=== PATIENT | female | born 1985 | race Caucasian/White ===

== ENCOUNTER 2021-06-21 07:19 | Emergency (ER) | payer OTHER, SELFPAY ==
[2021-06-21] VITALS (18 sets, daily range): BP systolic 100–120; BP diastolic 68–78; PULSE 48–65; RESP 16–18; TEMP 36.9; O2SAT 95–100; BMI 21.9
--- NOTE | 2021-06-21 07:29 | DI.RAD.S_ITS ---
PROCEDURE: XR ACUTE ABDOMEN SERIES INDICATIONS: Abdominal pain TECHNIQUE: One view chest and two views of the abdomen were acquired. COMPARISON: None. FINDINGS: Surgical changes and devices: None. Chest: Lungs are clear. Heart size is normal. No pleural effusions. No pneumoperitoneum. Abdomen: Bowel gas pattern is normal. No suspicious calcifications. Visualized solid organ contours appear normal. Bones: No suspicious bony lesions. IMPRESSION: A nonobstructive bowel gas pattern is seen. If clinically appropriate, please consider a repeat plain film study or a dedicated CT of the abdomen and pelvis, if the patient's symptoms persist or worsen. Dictated by: Didier Castillo M.D. on 06/21/2021 at 7:38 Approved by: Didier Castillo M.D. on 06/21/2021 at 7:38
[2021-06-21 07:50] LABS: Add Manual Diff / Slide Review NO; Basophils Absolute Auto 0 /uL (0-100); Basophils Percent Auto 0.4 % (0-2); Eosinophils Absolute Auto 0 /uL (0-450); Eosinophils Percent Auto 0.6 % (2-4); Hematocrit 37.9 % (36-46); Hemoglobin 12.6 g/dL (12.0-16.0); Lymphocytes Absolute Auto 600 /uL (1100-4500); Lymphocytes Percent Auto 12.2 % (25-40); Mean Corpuscular HGB Conc 33.3 % (30-36); Mean Corpuscular Hemoglobin 28.9 PG (26-34); Mean Corpuscular Volume 86.8 fL (80-100); Monocytes Absolute Auto 400 /uL (0-900); Neutrophils Absolute Auto 4100 /uL (1500-7000); Neutrophils Percent Auto 78.8 % (50-75); Platelet Count 165 X10^3/uL (150-400); Red Blood Cell Count 4.36 X10^6/uL (4.0-5.2); Red Cell Distribution Width 17.8 % (11.6-14.8); White Blood Cell Count 5.2 X10^3/uL (4.5-11.0)
[2021-06-21 08:01] LABS: Alanine Aminotransferase 15 IU/L (<35); Albumin 4.5 g/dL (3.5-5.0); Albumin Globulin Ratio 1.6 (1.0-2.8); Alkaline Phosphatase 39 U/L (38-126); Aspartate Aminotransferase 24 IU/L (14-36); BUN Creatinine Ratio 23.2 (6-22); Bilirubin Total 0.2 mg/dL (0.2-1.3); Blood Urea Nitrogen 16 mg/dL (7-17); Calcium 9.3 mg/dL (8.4-10.2); Carbon Dioxide 29 mmol/L (22-32); Chloride 103 mmol/L (98-107); Estimated Glomerular Filt Rate > 60.0 mL/min (>60); Globulin 2.8 g/dL (1.7-4.1); Glucose 96 mg/dL (70-100); HEMOLYSIS < 15 (0-50); Potassium 4.3 mmol/L (3.4-5.1); Sodium 140 mmol/L (137-145); Total Protein 7.3 g/dL (6.3-8.2)
[2021-06-21] MEDS: PANTOPRAZOLE 40 MG VIAL IV (08:06)
[2021-06-21] MEDS: SODIUM CHLORIDE 0.9% 1,000 ML 1000 ML IV (08:06)
--- NOTE | 2021-06-21 08:56 | ED.ABDPAIN ---
HPI - Abdominal Pain General Chief Complaint: Abdominal Pain Stated Complaint: abdomen pain x1 day Time Seen by Provider: 06/21/21 07:25 Source: patient and family Mode of arrival: Family Vehicle Limitations: no limitations History of Present Illness HPI narrative: 35-year-old female nonsmoker without a significant medical history presents with her in the chief complaint of severe epigastric pain over the past 24 hours or so. She states that in that time frame she has had tight, gripping pain in her upper abdomen that seems to be made worse depending on her position, was particularly bad last night when she was trying to lay on her abdomen. She denies any obvious relationship to eating or drinking. She has had nausea but no vomiting. She has been having episodes of loose stools over the past few days. She had an episode or 2 of dark stool after taking Pepto-Bismol. She has been on 2 courses of Augmentin for an infection in her finger and has 2 pills left with her last prescription. She has regained essentially full range of motion and has no redness, pain or swelling on her finger where she was bit by dog about 1 month ago. She has an upcoming MRI for evaluation of her injury. Additionally she did a 3 day fast of nothing but water and coffee and and did this on Wednesday. She states the next day she started feeling sick and just has not been right since then. Related Data Previous Rx's Medication Instructions Recorded hyoscyamine sulfate 0.125 mg tablet 0.125 mg PO BID-QID PRN #20 tab 06/21/21 ondansetron 4 mg disintegrating 4 mg PO TID-QID PRN #10 tab 06/21/21 tablet vancomycin 125 mg capsule 125 mg PO QID 10 Days #40 cap 06/21/21 Allergies Allergy/AdvReac Type Severity Reaction Status Date / Time Opioids - Morphine Analogues AdvReac Vomiting Verified 06/21/21 07:51 Review of Systems Review of Systems Narrative: GENERAL: Denies chills, fatigue, malaise, fever, sweats. HEENT: Denies sinus pain, ear pain, sore throat, difficulty swallowing, dizziness. RESPIRATORY: Denies dyspnea, cough, wheezing, hemoptysis, sputum. CARDIOVASCULAR: Denies chest pain, palpitations, orthopnea, edema, GASTROINTESTINAL: See HPI : Denies dysuria, frequency, incontinence, hematuria, urinary retention. MUSCULOSKELETAL: denies weakness, joint pain, or bony pain SKIN: Denies rash, skin lesions, or other NEUROLOGIC: Denies weakness, headache, numbness, change in speech, confusion, seizures, incoordination. PSYCHIATRIC: No concerning psychosocial issues. 12 point review of systems is negative except for those stated above Patient History Social History Smoking Status: Never smoker Smoking Status: Never smoker alcohol intake frequency: 0-2 drinks per day Substance Use Type: does not use Exam Narrative Exam Narrative: GENERAL: [35 year old patient appears stated age. Well-developed patient, in mild distress. Tearful, frustrated, rubbing her upper abdomen HEAD: Atraumatic. Normocephalic. EYES: Pupils equal round and reactive. Extraocular motions intact. No scleral icterus. No injection or drainage. ENT: Nose without bleeding, purulent drainage. Throat without erythema, tonsillar hypertrophy or exudate. Airway patent. NECK: Trachea midline. Non tender CARDIOVASCULAR: Regular rate and rhythm without murmurs, gallops, or rubs. RESPIRATORY: Clear to auscultation. Breath sounds equal bilaterally. No wheezes, rales, or rhonchi. GASTROINTESTINAL: Abdomen soft, tender in the epigastrium, nondistended. EXTREMITIES: No edema or joint tenderness. BACK: Nontender without deformity or crepitance. No flank tenderness. NEURO: AOx3. SKIN: No rash or erythema of visible areas Initial Vital Signs Initial Vital Signs: Vital Signs Temperature 98.5 F 06/21/21 07:35 Pulse Rate 65 06/21/21 07:35 Respiratory Rate 18 06/21/21 07:35 Blood Pressure 120/73 06/21/21 07:35 Pulse Oximetry 99 06/21/21 07:35 Course Orders Ordered: ED Orders 06/21/21 11:26 CT abdomen pelvis w con Stat 06/21/21 13:18 GI Panel (Film Array) Stat Discontinued Medications Al Hydrox/Mg Hydrox/Simethicone 20 ml/ Lidocaine HCl 15 ml 0 ml PO NOW ONE Stop: 06/21/21 09:12 Last Admin: 06/21/21 09:26 Dose: 35 ml Documented by: JOVITA Sodium Chloride (Normal Saline 0.9%) 1,000 mls @ 1,000 mls/hr IV BOLUS ONE Stop: 06/21/21 08:27 Last Infusion: 06/21/21 09:09 Dose: 0 mls/hr Documented by: Admin: 06/21/21 08:06 Dose: 1,000 mls/hr Documented by: JOVITA Lorazepam (Lorazepam 2 Mg/Ml Inj) 0.5 mg IV NOW ONE Stop: 06/21/21 10:13 Last Admin: 06/21/21 10:20 Dose: 0.5 mg Documented by: JOVITA Pantoprazole Sodium (Pantoprazole 40 Mg Vial) 40 mg IV NOW ONE Stop: 06/21/21 07:29 Last Admin: 06/21/21 08:06 Dose: 40 mg Documented by: JOVITA Reevaluation(s) Reevaluation #1: Patient feeling some improvement but still having pain after the above-stated therapies. We had a discussion at the bedside, rather lengthy about how reassuring her story and exam as well as labs are. We discussed the pros and cons of advanced imaging and sure the opinion that her story and reassuring exam and labs mucous feel comfortable holding off on a CT scan for now. Reevaluation #2: Symptoms continue and there is little improvement with above-stated therapies, we did discuss the to leave the CT scan and agree that it is important to perform at this point Vital Signs Vital signs: Vital Signs - 8 hr 06/21/21 11:30 06/21/21 12:00 06/21/21 12:30 Pulse Rate 55 L 65 59 L Respiratory Rate Blood Pressure 117/76 Pulse Oximetry 100 98 99 06/21/21 12:53 06/21/21 14:19 06/21/21 16:02 Pulse Rate 64 56 L Respiratory Rate 16 Blood Pressure 103/72 100/68 Pulse Oximetry 99 95 MDM - Abdominal Pain Lab Data Result diagrams: 06/21/21 07:40 06/21/21 07:40 Labs: Lab Results 06/21/21 06/21/21 06/21/21 Range/Units 07:40 07:40 13:18 WBC 5.2 (4.5-11.0) X10^3/uL RBC 4.36 (4.0-5.2) X10^6/uL Hgb 12.6 (12.0-16.0) g/dL Hct 37.9 (36-46) % MCV 86.8 (80-100) fL MCH 28.9 (26-34) PG MCHC 33.3 (30-36) % RDW 17.8 H (11.6-14.8) % Plt Count 165 (150-400) X10^3/uL Neut % (Auto) 78.8 H (50-75) % Lymph % (Auto) 12.2 L (25-40) % [place] % (Auto) 8.0 (3-14) % Eos % (Auto) 0.6 L (2-4) % Baso % (Auto) 0.4 (0-2) % Neut # (Auto) 4100 (5151-1461) /uL Lymph # (Auto) 600 L (0383-4401) /uL [place] # (Auto) 400 (0-900) /uL Eos # (Auto) 0 (0-450) /uL Baso # (Auto) 0 (0-100) /uL Sodium 140 (137-145) mmol/L Potassium 4.3 (3.4-5.1) mmol/L Chloride 103 (98-107) mmol/L Carbon Dioxide 29 (22-32) mmol/L BUN 16 (7-17) mg/dL Creatinine 0.69 (0.52-1.04) mg/dL Estimated GFR > 60.0 (>60) mL/min BUN/Creatinine Ratio 23.2 H (6-22) Glucose 96 (70-100) mg/dL Calcium 9.3 (8.4-10.2) mg/dL Total Bilirubin 0.2 (0.2-1.3) mg/dL AST 24 (14-36) IU/L ALT 15 (<35) IU/L Alkaline Phosphatase 39 (38-126) U/L Total Protein 7.3 (6.3-8.2) g/dL Albumin 4.5 (3.5-5.0) g/dL Globulin 2.8 (1.7-4.1) g/dL Albumin/Globulin Ratio 1.6 (1.0-2.8) Stl C. cayetanensis PCR Not detected (Not Detect) Stool Rotavirus (PCR) Not detected (Not Detect) Stool Adenovirus (PCR) Detected H (Not Detect) Stool Astrovirus (PCR) Not detected (Not Detect) Stool Cryptosporidium PCR Not detected (Not Detect) Stl E.coli Shiga Tox PCR Not detected (Not Detect) St Sh/Enteroin Ecoli PCR Not detected (Not Detect) Stool E coli O157 PCR Not detected (Not Detect) Stl Enterotoxigenic E PCR Not detected (Not Detect) Stool EPEC (PCR) Not detected (Not Detect) Stl E. histolytica PCR Not detected (Not Detect) Stool Giardia Lamblia PCR Not detected (Not Detect) Stool Sapovirus (PCR) Not detected (Not Detect) Stl P. shigelloides PCR Not detected (Not Detect) St Y.enterocolitica PCR Not detected (Not Detect) Stool Vibrio (PCR) Not detected (Not Detect) Stl Vibrio cholerae PCR Not detected (Not Detect) Stl Enteroaggr Ecoli PCR Not detected (Not Detect) Stl Norovirus GI/GII PCR Not detected (Not Detect) Campylobacter (PCR) Not detected (Not Detect) C. difficile Tox (PCR) Detected H (Not Detect) Salmonella (PCR) Not detected (Not Detect) Point of care testing: Point of Care Testing Test Results Negative Urine Dip Bedside Urine Glucose Negative Bedside Urine Bilirubin - Negative Bedside Urine Ketone - Negative Urine Specific [place] 1.010 Bedside Urine Occult Blood - Negative Bedside Urine pH 7.5 Bedside Urine Protein - Negative Bedside Urine Urobilinogen - Negative Bedside Urine Nitrite - Negative Bedside Urine Leukocytes - Negative Esterase Imaging Data CT scan - abdomen/pelvis: Radiologist's Impression: [place] [address] CT Scan Report Signed Patient: Racquel Hudson MR#: [id number] : 1985 Acct:[id number] Age/Sex: 35 / F Date of Service: 06/21/21 Loc: ED Accession Number: [id number] ?? Procedure: CT abdomen pelvis w con Ordering Provider: Jorge Luis Auguste D.O. PROCEDURE:? CT ABDOMEN PELVIS W CON ? INDICATIONS:? severe abdominal pain ? TECHNIQUE:? After the administration of IV contrast, axial sections were acquired from the lung bases to the pubic symphysis.? Coronal and sagittal reformats were performed.? For radiation dose reduction, the following was used:? automated exposure control, adjustment of mA and/or kV according to patient size. ? COMPARISON:? [facility], CR, XR ACUTE ABDOMEN SERIES, 06/21/2021, 7:35. ? FINDINGS:? Image quality:? Excellent.? ? Lung bases:? Unremarkable.? ? Heart:? No significant findings. ? ? ABDOMEN: Liver:? Unremarkable.? ? Gallbladder:? Unremarkable.? ? Biliary ducts:? Unremarkable.? ? Pancreas:? Unremarkable.? ? Spleen:? Unremarkable.? ? Adrenal Glands:? Unremarkable.? ? Kidneys and Ureters:? Unremarkable.? ? ? Stomach and Bowel:? There is diffuse nodular thickening seen of the entire colon, although worst proximally and within the transverse colon.? Overall hyperenhancement can be seen in the colon.? No dilated loops of small bowel are seen.? The Peritoneum:? No abnormal intraperitoneal fluid.? No free air.? ? Ventral Wall: ? No hernia.? Abdominal Nodes:? No retroperitoneal or mesenteric adenopathy by size criteria.? Vessels:? Aorta and inferior vena cava are normal in size.? Incidental note is made of a circumaortic left renal vein.? ? PELVIS: Pelvic Organs:? The uterus is overall hyperenhancing.? There is a left ovarian cyst seen that measures 3.6 cm.? There is an apparent bright hemorrhagic cyst seen that measures up to 1.9 cm. There is moderate simple appearing free fluid seen within the right pelvis. Bladder:? Unremarkable.? ? Pelvic Nodes: No enlarged lymph nodes.? Miscellaneous: No inguinal hernias are seen. ? ? ? Bones:? Mild dextroconvex scoliotic curvature is seen.? ? ? IMPRESSION:? ? Moderate to prominent generalized colonic wall thickening can be seen.? Please correlate with potential infectious and inflammatory causes of colitis, including C. difficile colitis. ? No findings of perforation or abscess can be seen. ? There is a likely right ovarian hemorrhagic cyst seen, with moderate simple appearing free fluid seen within the pelvis.? There is a simple appearing 3.6 cm left ovarian cyst seen. If it would be clinically appropriate, a followup pelvic ultrasound could be considered in 6 weeks to assure resolution/ improvement.? ? ? Dictated by: Didier Castillo M.D. on 06/21/2021 at 11:04 ? ? Approved by: Didier Castillo M.D. on 06/21/2021 at 11:08 ? MDM Narrative Medical decision making narrative: Epigastric pain and burning after 2 rounds of antibiotics on top of a 3 day fast of nothing but water and coffee. Labs are reassuring in the serum, stool sample demonstrates C diff colitis. Imaging is consistent with lab findings. Patient's pain is well controlled, she is tolerating oral hydration. She and understand diagnosis and plan and have been given extensive return precautions. Questions answered to their apparent satisfaction. Discharge Plan Departure Patient Disposition: Home Clinical Impression: C. difficile colitis Instructions: Antibiotic-associated Colitis -- C difficile Activity Restrictions/Additional Instructions: *You have been diagnosed with [abdominal pain from C diff colitis, likely related to recent course of antibiotics *What to do: *Please continue to take your regular medications as directed. [x ] New medication prescriptions sent to your pharmacy: [ ] [ ] New medication written as a paper prescription [ ] No new medications given *Please follow up with your primary care provider in 2-3 days, call for an appointment. Let them know you were seen in the Emergency Department and that we ask that you be seen in follow up. We will electronically transmit a record of today's note if your PCP is in our system *Please consider a clear liquid diet for the next 24-48 hours and then advance as tolerated *If you do not have a primary care provider please contact the [facility] Resource line at [phone]. They will ask some questions about your medical history and help get you set up with a doctor in the community. *Return to Emergency Department if you should have any new, worsening or concerning symptoms, such as [fever greater than 101 F, shaking chills, worsening pain, persistent vomiting or other bothersome symptoms] Prescriptions: New vancomycin 125 mg capsule 125 mg PO QID 10 Days Qty: 40 RF: 0 ondansetron 4 mg tablet,disintegrating 4 mg PO TID-QID PRN (Reason: nausea and vomiting) Qty: 10 RF: 0 hyoscyamine sulfate 0.125 mg tablet 0.125 mg PO BID-QID PRN (Reason: dyspepsia) Qty: 20 RF: 0 Referrals: Miscellaneous,Doctor, MD [Primary Care Provider] - Stand Alone Forms: Work Release Note
[2021-06-21] MEDS: MAG HYDROX/ALUMINUM/SIMETH SUS 20 ML, LIDOCAINE VISCOUS 2% 15 ML PO (09:26)
[2021-06-21] MEDS: LORazepam 2 MG/ML INJ 0.5 MG IV (10:20)
--- NOTE | 2021-06-21 11:26 | DI.CT.S_ITS ---
PROCEDURE: CT ABDOMEN PELVIS W CON INDICATIONS: severe abdominal pain TECHNIQUE: After the administration of IV contrast, axial sections were acquired from the lung bases to the pubic symphysis. Coronal and sagittal reformats were performed. For radiation dose reduction, the following was used: automated exposure control, adjustment of mA and/or kV according to patient size. COMPARISON: [facility], CR, XR ACUTE ABDOMEN SERIES, 06/21/2021, 7:35. FINDINGS: Image quality: Excellent. Lung bases: Unremarkable. Heart: No significant findings. ABDOMEN: Liver: Unremarkable. Gallbladder: Unremarkable. Biliary ducts: Unremarkable. Pancreas: Unremarkable. Spleen: Unremarkable. Adrenal Glands: Unremarkable. Kidneys and Ureters: Unremarkable. Stomach and Bowel: There is diffuse nodular thickening seen of the entire colon, although worst proximally and within the transverse colon. Overall hyperenhancement can be seen in the colon. No dilated loops of small bowel are seen. The Peritoneum: No abnormal intraperitoneal fluid. No free air. Ventral Wall: No hernia. Abdominal Nodes: No retroperitoneal or mesenteric adenopathy by size criteria. Vessels: Aorta and inferior vena cava are normal in size. Incidental note is made of a circumaortic left renal vein. PELVIS: Pelvic Organs: The uterus is overall hyperenhancing. There is a left ovarian cyst seen that measures 3.6 cm. There is an apparent bright hemorrhagic cyst seen that measures up to 1.9 cm. There is moderate simple appearing free fluid seen within the right pelvis. Bladder: Unremarkable. Pelvic Nodes: No enlarged lymph nodes. Miscellaneous: No inguinal hernias are seen. Bones: Mild dextroconvex scoliotic curvature is seen. IMPRESSION: Moderate to prominent generalized colonic wall thickening can be seen. Please correlate with potential infectious and inflammatory causes of colitis, including C. difficile colitis. No findings of perforation or abscess can be seen. There is a likely right ovarian hemorrhagic cyst seen, with moderate simple appearing free fluid seen within the pelvis. There is a simple appearing 3.6 cm left ovarian cyst seen. If it would be clinically appropriate, a followup pelvic ultrasound could be considered in 6 weeks to assure resolution/ improvement. Dictated by: Didier Castillo M.D. on 06/21/2021 at 11:04 Approved by: Didier Castillo M.D. on 06/21/2021 at 11:08
[2021-06-21 14:50] LABS: Campylobacter Not Detected (Not Detect); Clostridium difficile toxin AB Detected (Not Detect)
[2021-06-21 14:51] LABS: Adenovirus F 40/41 Detected (Not Detect); Astrovirus Not Detected (Not Detect); Cryptosporidium Not Detected (Not Detect); Cyclospora cayetanensis Not Detected (Not Detect); Entamoeba histolytica Not Detected (Not Detect); Enteroaggregative E.coli Not Detected (Not Detect); Enteropathogenic E.coli Not Detected (Not Detect); Enterotoxigenic E.coli It/st Not Detected (Not Detect); Giardia lamblia Not Detected (Not Detect); Norovirus GI/GII Not Detected (Not Detect); Plesiomonsa shigelloides Not Detected (Not Detect); Rotavirus A Not Detected (Not Detect); Salmonella Not Detected (Not Detect); Sapovirus Not Detected (Not Detect); Shiga-like toxin-prod E.coli Not Detected (Not Detect); Shigella/Enteroinvasive E.coli Not Detected (Not Detect); Vibrio Not Detected (Not Detect); Vibrio cholerae Not Detected (Not Detect); Yersinia enterocolitica Not Detected (Not Detect)
[2021-06-25 16:36] LABS: C difficie Toxins A and B, EIA Negative (Negative)
== END 2021-06-21 16:16 | disposition home or self-care (01) ==
PROVIDERS: Emergency Provider Emergency Medicine
DX: A04.72 Enterocolitis due to Clostridium difficile, not specified as recurrent (principal); R11.0 Nausea
CPT/HCPCS: 36415; 74022; 74177; 80053; 81003; 81025; 85025; 87324; 87507; 96361; 96374; 96375; 99284; 99285; C9113; J2060; Q9967

== ENCOUNTER 2022-08-23 12:05 | Emergency (ER) | payer OTHER, SELFPAY ==
[2022-08-23] VITALS (14 sets, daily range): BP systolic 85–111; BP diastolic 50–71; PULSE 51–110; RESP 16–20; TEMP 36.7; O2SAT 97–100; BMI 25.0
--- NOTE | 2022-08-23 12:22 | ED.ABDPAIN ---
HPI - Abdominal Pain General Chief Complaint: Abdominal Pain Stated Complaint: abd pain like knives in stomach t-1 Time Seen by Provider: 08/23/22 12:08 History of Present Illness HPI narrative: 37-year-old female nonsmoker with history of reflux and multiple episodes of C diff colitis and eventual stool transplant at [facility] presents with a chief complaint of severe abdominal pain with nausea vomiting that has been worsening since yesterday. She states her pain is a 7/10 and sharp and stabbing. She states it is most notable in the epigastrium and right upper quadrant and seems to be worse with movement and improves with rest. She denies any fever or chills nor bad food. She had taken some sucralfate and other acid reducers at home and did not seem to help whatsoever. She has had 7 episodes of loose stool today but denies any recent antibiotics, bad food or exposure to other ill persons. She states this feels different than what her C diff use to feel like Related Data Previous Rx's Medication Instructions Recorded hyoscyamine sulfate 0.125 mg tablet 0.125 mg PO BID-QID PRN dyspepsia 06/21/21 #20 tabs ondansetron 4 mg disintegrating 4 mg PO TID-QID PRN nausea and 06/21/21 tablet vomiting #10 tabs hyoscyamine sulfate 0.125 mg tablet 0.125 mg PO BID-QID PRN dyspepsia 08/23/22 #20 tabs ketorolac 10 mg tablet 10 mg PO Q6H PRN pain #14 tabs 08/23/22 ondansetron 4 mg disintegrating 4 mg PO TID-QID PRN nausea and 08/23/22 tablet vomiting #10 tabs Allergies Allergy/AdvReac Type Severity Reaction Status Date / Time Opioids - Morphine Analogues AdvReac Vomiting Verified 06/21/21 07:51 Review of Systems Review of Systems Narrative: GENERAL: Denies chills, fatigue, malaise, fever, sweats. HEENT: Denies sinus pain, ear pain, sore throat, difficulty swallowing, dizziness. RESPIRATORY: Denies dyspnea, cough, wheezing, hemoptysis, sputum. CARDIOVASCULAR: Denies chest pain, palpitations, orthopnea, edema, GASTROINTESTINAL: See HPI : Denies dysuria, frequency, incontinence, hematuria, urinary retention. MUSCULOSKELETAL: denies weakness, joint pain, or bony pain SKIN: Denies rash, skin lesions, or other NEUROLOGIC: Denies weakness, headache, numbness, change in speech, confusion, seizures, incoordination. PSYCHIATRIC: No concerning psychosocial issues. 12 point review of systems is negative except for those stated above Patient History Social History Smoking Status: Never smoker Smoking Status: Never smoker alcohol intake frequency: 0-2 drinks per day Substance Use Type: does not use Exam Narrative Exam Narrative: GENERAL: [37] year old patient appears stated age. Well-developed patient, in mild distress. HEAD: Atraumatic. Normocephalic. EYES: Pupils equal round and reactive. Extraocular motions intact. No scleral icterus. No injection or drainage. ENT: Nose without bleeding, purulent drainage. Throat without erythema, tonsillar hypertrophy or exudate. Airway patent. NECK: Trachea midline. Non tender CARDIOVASCULAR: Regular rate and rhythm without murmurs, gallops, or rubs. RESPIRATORY: Clear to auscultation. Breath sounds equal bilaterally. No wheezes, rales, or rhonchi. GASTROINTESTINAL: Abdomen soft, non-tender, nondistended. EXTREMITIES: No edema or joint tenderness. BACK: Nontender without deformity or crepitance. No flank tenderness. NEURO: AOx3. SKIN: No rash or erythema of visible areas Initial Vital Signs Initial Vital Signs: Vital Signs Temperature 98.0 F 08/23/22 12:08 Pulse Rate 60 08/23/22 12:08 Respiratory Rate 16 08/23/22 12:08 Blood Pressure 111/67 08/23/22 12:08 Pulse Oximetry 100 08/23/22 12:08 Oxygen Delivery Method 08/23/22 12:08 Course Orders Ordered: Discontinued Medications Hydromorphone HCl (Hydromorphone 0.5 Mg Inj) 0.5 mg IV NOW ONE Stop: 08/23/22 13:57 Last Admin: 08/23/22 14:06 Dose: 0.5 mg Documented By: BIBIANA Hydromorphone HCl (Hydromorphone 0.5 Mg Inj) 0.5 mg IV NOW ONE Stop: 08/23/22 14:57 Last Admin: 08/23/22 15:11 Dose: Not Given Documented By: BIBIANA Sodium Chloride (Normal Saline 0.9%) 1,000 mls @ 1,000 mls/hr IV BOLUS ONE Stop: 08/23/22 14:55 Last Infusion: 08/23/22 15:26 Dose: 0 mls/hr Documented By: Admin: 08/23/22 14:05 Dose: 1,000 mls/hr Documented By: BIBIANA Sodium Chloride (Normal Saline 0.9%) 1,000 mls @ 1,000 mls/hr IV BOLUS ONE Stop: 08/23/22 17:06 Last Infusion: 08/23/22 16:45 Dose: 0 mls/hr Documented By: Admin: 08/23/22 16:09 Dose: 1,000 mls/hr Documented By: JOLEEN Ketorolac Tromethamine (Ketorolac 30 Mg/Ml Vial) 15 mg IV NOW ONE Stop: 08/23/22 16:36 Last Admin: 08/23/22 16:38 Dose: 15 mg Documented By: BIBIANA Ondansetron HCl (Ondansetron 4 Mg/2 Ml Inj) 4 mg IV NOW ONE Stop: 08/23/22 13:57 Last Admin: 08/23/22 14:06 Dose: 4 mg Documented By: BIBIANA Ondansetron HCl (Ondansetron 4 Mg/2 Ml Inj) 4 mg IV NOW ONE Stop: 08/23/22 15:09 Last Admin: 08/23/22 15:12 Dose: 4 mg Documented By: BIBIANA Ondansetron HCl (Ondansetron 4 Mg Odt Prepack) 1 bottle MISC SEEINSTR ONE Stop: 08/23/22 17:50 Last Admin: 08/23/22 17:57 Dose: 1 bottle Documented By: BIBIANA Pantoprazole Sodium (Pantoprazole 40 Mg Vial) 40 mg IV NOW ONE Stop: 08/23/22 14:57 Last Admin: 08/23/22 15:02 Dose: 40 mg Documented By: BIBIANA Vital Signs Vital signs: Vital Signs - 8 hr 08/23/22 12:08 08/23/22 12:28 08/23/22 12:30 Temperature 98.0 F Pulse Rate 60 62 58 L Respiratory Rate 16 Blood Pressure 111/67 Pulse Oximetry 100 100 100 Oxygen Delivery Method Room Air 08/23/22 13:00 08/23/22 13:30 08/23/22 14:00 Temperature Pulse Rate 59 L 61 65 Respiratory Rate Blood Pressure Pulse Oximetry 99 100 97 Oxygen Delivery Method 08/23/22 14:08 08/23/22 14:08 08/23/22 15:12 Temperature Pulse Rate 64 110 H Respiratory Rate 20 Blood Pressure 106/71 104/50 L Pulse Oximetry 100 98 Oxygen Delivery Method 08/23/22 15:50 08/23/22 15:50 08/23/22 16:00 Temperature Pulse Rate 51 L 51 L Respiratory Rate 18 Blood Pressure 100/71 85/55 L Pulse Oximetry 98 97 Oxygen Delivery Method 08/23/22 16:00 08/23/22 16:30 08/23/22 16:30 Temperature Pulse Rate 52 L 56 L Respiratory Rate 18 Blood Pressure 93/61 Pulse Oximetry 98 98 Oxygen Delivery Method 08/23/22 17:00 08/23/22 17:00 Temperature Pulse Rate 54 L Respiratory Rate 18 Blood Pressure 97/65 Pulse Oximetry 97 Oxygen Delivery Method MDM - Abdominal Pain Lab Data Result diagrams: 08/23/22 12:30 08/23/22 12:30 Labs: Lab Results 08/23/22 08/23/22 08/23/22 Range/Units 12:30 12:30 12:30 WBC 7.6 (4.5-11.0) X10^3/uL RBC 4.20 (4.0-5.2) X10^6/uL Hgb 12.7 (12.0-16.0) g/dL Hct 38.5 (36-46) % MCV 91.8 (80-100) fL MCH 30.2 (26-34) PG MCHC 32.9 (30-36) % RDW 12.9 (11.6-14.8) % Plt Count 228 (150-400) X10^3/uL Neut % (Auto) 67.2 (50-75) % Lymph % (Auto) 21.8 L (25-40) % Tucker % (Auto) 8.8 (3-14) % Eos % (Auto) 1.2 L (2-4) % Baso % (Auto) 1.0 (0-2) % Neut # (Auto) 5100 (9603-1295) /uL Lymph # (Auto) 1700 (6429-2807) /uL Tucker # (Auto) 700 (0-900) /uL Eos # (Auto) 100 (0-450) /uL Baso # (Auto) 100 (0-100) /uL Sodium 138 (137-145) mmol/L Potassium 3.8 (3.4-5.1) mmol/L Chloride 101 (98-107) mmol/L Carbon Dioxide 28 (22-32) mmol/L BUN 21 H (7-17) mg/dL Creatinine 0.49 L (0.52-1.04) mg/dL Estimated GFR > 60 (>60) mL/min BUN/Creatinine Ratio 42.9 H (6-22) Glucose 80 (70-100) mg/dL Lactate 0.7 (0.7-2.1) mmol/L Calcium 8.8 (8.4-10.2) mg/dL Magnesium (1.6-2.3) mg/dL Total Bilirubin 0.3 (0.2-1.3) mg/dL AST 25 (14-36) IU/L ALT 20 (<35) IU/L Alkaline Phosphatase 49 (38-126) U/L Total Protein 7.2 (6.3-8.2) g/dL Albumin 4.1 (3.5-5.0) g/dL Globulin 3.1 (1.7-4.1) g/dL Albumin/Globulin Ratio 1.3 (1.0-2.8) Lipase (23-300) U/L SARS-CoV-2 (PCR) (Negative) Influenza A (RT-PCR) (NEGATIVE) Influenza B (RT-PCR) (NEGATIVE) RSV (PCR) (Negative) 08/23/22 08/23/22 Range/Units 12:30 12:39 WBC (4.5-11.0) X10^3/uL RBC (4.0-5.2) X10^6/uL Hgb (12.0-16.0) g/dL Hct (36-46) % MCV (80-100) fL MCH (26-34) PG MCHC (30-36) % RDW (11.6-14.8) % Plt Count (150-400) X10^3/uL Neut % (Auto) (50-75) % Lymph % (Auto) (25-40) % Tucker % (Auto) (3-14) % Eos % (Auto) (2-4) % Baso % (Auto) (0-2) % Neut # (Auto) (4173-2420) /uL Lymph # (Auto) (6530-9278) /uL Tucker # (Auto) (0-900) /uL Eos # (Auto) (0-450) /uL Baso # (Auto) (0-100) /uL Sodium (137-145) mmol/L Potassium (3.4-5.1) mmol/L Chloride (98-107) mmol/L Carbon Dioxide (22-32) mmol/L BUN (7-17) mg/dL Creatinine (0.52-1.04) mg/dL Estimated GFR (>60) mL/min BUN/Creatinine Ratio (6-22) Glucose (70-100) mg/dL Lactate (0.7-2.1) mmol/L Calcium (8.4-10.2) mg/dL Magnesium 1.9 (1.6-2.3) mg/dL Total Bilirubin (0.2-1.3) mg/dL AST (14-36) IU/L ALT (<35) IU/L Alkaline Phosphatase (38-126) U/L Total Protein (6.3-8.2) g/dL Albumin (3.5-5.0) g/dL Globulin (1.7-4.1) g/dL Albumin/Globulin Ratio (1.0-2.8) Lipase 287 (23-300) U/L SARS-CoV-2 (PCR) Negative (Negative) Influenza A (RT-PCR) Flu a negative (NEGATIVE) Influenza B (RT-PCR) Flu b negative (NEGATIVE) RSV (PCR) Negative (Negative) Point of care testing: Point of Care Testing Test Results Negative Urine Dip Bedside Urine Glucose Negative Bedside Urine Bilirubin - Negative Bedside Urine Ketone - Negative Urine Specific [place] 1.005 Bedside Urine Occult Blood - Negative Bedside Urine pH 7.5 Bedside Urine Protein - Negative Bedside Urine Urobilinogen - Negative Bedside Urine Nitrite - Negative Bedside Urine Leukocytes - Negative Esterase Imaging Data US - abdomen: Radiologist's Impression: [address] [address] Ultrasound Report Signed Patient: Racquel Hudson MR#: [id number] : 1985 Acct:[id number] Age/Sex: 37 / F Date of Service: 08/23/22 Loc: ED Accession Number: [id number] ?? Procedure: US abdomen limited Ordering Provider: Jorge Luis Auguste D.O. PROCEDURE: US ABDOMEN LIMITED ? INDICATIONS:? EPIGASTRIC PAIN ? TECHNIQUE:? Real-time focused scanning was performed of the abdomen, with image documentation.? ? COMPARISON:? [facility], , US ABDOMEN COMPLETE, 08/28/2021, 8:09. ? FINDINGS:? Liver demonstrates increased size and overall normal echogenicity.? No focal liver lesions are seen. ? No findings of gallstones or sludge are seen.? The gallbladder wall is not thickened, measuring 3 mm or less.? A 3 mm gallbladder wall polyp is incidentally noted.? No specific pericholecystic fluid is seen.? The sonographic Fritz sign is negative. ? There is no biliary dilatation, the common bile duct measures 3-4 mm.? ? No significant pancreatic abnormality is seen on these images.? IMPRESSION:? The gallbladder demonstrates a normal sonographic appearance. No biliary dilatation is seen. ? ? Dictated by: Didier Castillo M.D. on 08/23/2022 at 14:21 ? ? Approved by: Didier Castillo M.D. on 08/23/2022 at 14:21 ? CT scan - abdomen/pelvis: Radiologist's Impression: [place] [address] CT Scan Report Signed Patient: Racquel Hudson MR#: [id number] : 1985 Acct:[id number] Age/Sex: 37 / F Date of Service: 08/23/22 Loc: ED Accession Number: [id number] ?? Procedure: CT abdomen pelvis w con Ordering Provider: Jorge Luis Auguste D.O. PROCEDURE:? CT ABDOMEN PELVIS W CON ? INDICATIONS:? severe abdominal pain ? TECHNIQUE:? After the administration of oral and IV contrast, axial sections were acquired from the lung bases to the pubic symphysis.? Coronal and sagittal reformats were performed.? For radiation dose reduction, the following was used:? automated exposure control, adjustment of mA and/or kV according to patient size. ? COMPARISON:? [facility], US ABDOMEN LIMITED, 08/23/2022, 14:39.? [facility], MR, MR ABDOMEN MRCP, 09/24/2021, 9:01.? [facility], CT, CT ABDOMEN PELVIS W CON, 06/21/2021, 11:39. ? FINDINGS:? Image quality:? Excellent.? ? Lung bases:? Unremarkable.? ? A small hiatal hernia is incidentally noted.? Heart:? No significant findings. ? ? ABDOMEN: Liver:? Mild periportal edema is seen. The liver is normal in size and demonstrates no suspicious lesions. Gallbladder:? Unremarkable.? ? Biliary ducts:? Unremarkable.? ? Pancreas:? Unremarkable.? ? Spleen:? Unremarkable.? ? Adrenal Glands:? Unremarkable.? ? Kidneys and Ureters:? Unremarkable.? ? ? Stomach and Bowel:? Mild wall thickening can be seen of the colon, which is clearly improved compared to the prior CT dated 06/21/2021. No dilated loops of small bowel are seen. The stomach is relatively decompressed. A normal appendix is incidentally noted.? Peritoneum:? A small amount of ascites is seen.? No abnormal intraperitoneal fluid.? No free air.? ? Ventral Wall: ? No hernia.? Abdominal Nodes:? No retroperitoneal or mesenteric adenopathy by size criteria.? Vessels:? Aorta and inferior vena cava are normal in size.? Incidental note is made of a circumaortic left renal vein.? ? PELVIS: Pelvic Organs:? The uterus is unremarkable.? There is a presumed resolving right-sided hemorrhagic cyst, as on series 4, image 36 measuring 18 mm. Bladder:? Unremarkable.? ? Pelvic Nodes: No enlarged lymph nodes.? Miscellaneous: No inguinal hernias are seen. ? ? ? Bones:? Unremarkable.? IMPRESSION:? ? Mild wall thickening can be seen of the colon, which is clearly improved compared to the prior CT. ? No dilated loops of small bowel are seen.? ? Mild periportal edema is seen, which is nonspecific. ? There is an apparent resolving right ovarian hemorrhagic cyst. If it would be clinically appropriate, a followup pelvic ultrasound could be considered in 6 weeks to assure resolution/ improvement.? Additional findings: Small hiatal hernia Circumaortic left renal vein Normal appendix ? Dictated by: Didier Castillo M.D. on 08/23/2022 at 14:50 ? ? Approved by: Didier Castillo M.D. on 08/23/2022 at 14:54 ? Discharge Plan Departure Patient Disposition: Home Clinical Impression: Abdominal pain, Ovarian cyst, Colitis Instructions: DI for Ovarian Cyst, DI for Colitis Activity Restrictions/Additional Instructions: *You have been diagnosed with [abdominal pain, likely due to a very mild colitis and possibly a resolving right ovarian cyst. As we discussed your history and physical exam as well as labs and imaging are very reassuring. There is no evidence of any severe diagnoses that would require a specific or immediate intervention. *What to do: *Please continue to take your regular medications as directed. [x ] New medication prescriptions sent to your pharmacy: [[facility]] *Please follow up with your primary care provider in 2-3 days, call for an appointment. Let them know you were seen in the Emergency Department and that we ask that you be seen in follow up. We will electronically transmit a record of today's note if your PCP is in our system *Please consider a clear liquid diet for the next 24-48 hours and then slowly advance to regular as tolerated. Also, try to avoid alcohol, nicotine, caffeine, spicy, acidic or fatty foods as this may worsen your symptoms *If you do not have a primary care provider please contact the [facility] Resource line at [phone]. They will ask some questions about your medical history and help get you set up with a doctor in the community. *Return to Emergency Department if you should have any new, worsening or concerning symptoms, such as [fever greater than 101 F, shaking chills, worsening pain, persistent vomiting or other bothersome symptoms] Prescriptions: New ketorolac 10 mg tablet 10 mg PO Q6H PRN (Reason: pain) Qty: 14 0RF hyoscyamine sulfate 0.125 mg tablet 0.125 mg PO BID-QID PRN (Reason: dyspepsia) Qty: 20 0RF ondansetron 4 mg tablet,disintegrating 4 mg PO TID-QID PRN (Reason: nausea and vomiting) Qty: 10 0RF No Action ondansetron 4 mg tablet,disintegrating 4 mg PO TID-QID PRN (Reason: nausea and vomiting) Qty: 10 0RF hyoscyamine sulfate 0.125 mg tablet 0.125 mg PO BID-QID PRN (Reason: dyspepsia) Qty: 20 0RF Referrals: Rahul Landry DO [Primary Care Provider] - Visit Report Forms: Patient Portal/API
[2022-08-23 12:54] LABS: Add Manual Diff / Slide Review NO; Basophils Absolute Auto 100 /uL (0-100); Eosinophils Absolute Auto 100 /uL (0-450); Eosinophils Percent Auto 1.2 % (2-4); Hematocrit 38.5 % (36-46); Hemoglobin 12.7 g/dL (12.0-16.0); Lymphocytes Absolute Auto 1700 /uL (1100-4500); Lymphocytes Percent Auto 21.8 % (25-40); Mean Corpuscular HGB Conc 32.9 % (30-36); Mean Corpuscular Hemoglobin 30.2 PG (26-34); Mean Corpuscular Volume 91.8 fL (80-100); Monocytes Absolute Auto 700 /uL (0-900); Monocytes Percent Auto 8.8 % (3-14); Neutrophils Absolute Auto 5100 /uL (1500-7000); Neutrophils Percent Auto 67.2 % (50-75); Platelet Count 228 X10^3/uL (150-400); Red Cell Distribution Width 12.9 % (11.6-14.8); White Blood Cell Count 7.6 X10^3/uL (4.5-11.0)
[2022-08-23 13:11] LABS: Lactate (Lactic Acid) 0.7 mmol/L (0.7-2.1)
[2022-08-23 13:12] LABS: Alanine Aminotransferase 20 IU/L (<35); Albumin 4.1 g/dL (3.5-5.0); Albumin Globulin Ratio 1.3 (1.0-2.8); Alkaline Phosphatase 49 U/L (38-126); Aspartate Aminotransferase 25 IU/L (14-36); BUN Creatinine Ratio 42.9 (6-22); Bilirubin Total 0.3 mg/dL (0.2-1.3); Blood Urea Nitrogen 21 mg/dL (7-17); Calcium 8.8 mg/dL (8.4-10.2); Carbon Dioxide 28 mmol/L (22-32); Chloride 101 mmol/L (98-107); Estimated Glomerular Filt Rate > 60 mL/min (>60); Globulin 3.1 g/dL (1.7-4.1); Glucose 80 mg/dL (70-100); HEMOLYSIS < 15 (0-50); Potassium 3.8 mmol/L (3.4-5.1); Sodium 138 mmol/L (137-145); Total Protein 7.2 g/dL (6.3-8.2)
[2022-08-23 13:14] LABS: Lipase 287 U/L (23-300); Magnesium 1.9 mg/dL (1.6-2.3)
[2022-08-23 13:31] LABS: Influenza A - CEPHEID Flu A NEGATIVE (NEGATIVE); Influenza B - CEPHEID Flu B NEGATIVE (NEGATIVE); Respiratory Syncytial Virus Negative (Negative)
[2022-08-23 13:38] LABS: COVID-19 CEPHEID 4-PLEX PCR Negative (Negative)
--- NOTE | 2022-08-23 13:56 | DI.US.S_ITS ---
PROCEDURE: US ABDOMEN LIMITED INDICATIONS: EPIGASTRIC PAIN TECHNIQUE: Real-time focused scanning was performed of the abdomen, with image documentation. COMPARISON: [facility], US, US ABDOMEN COMPLETE, 08/28/2021, 8:09. FINDINGS: Liver demonstrates increased size and overall normal echogenicity. No focal liver lesions are seen. No findings of gallstones or sludge are seen. The gallbladder wall is not thickened, measuring 3 mm or less. A 3 mm gallbladder wall polyp is incidentally noted. No specific pericholecystic fluid is seen. The sonographic Fritz sign is negative. There is no biliary dilatation, the common bile duct measures 3-4 mm. No significant pancreatic abnormality is seen on these images. IMPRESSION: The gallbladder demonstrates a normal sonographic appearance. No biliary dilatation is seen. Dictated by: Didier Castillo M.D. on 08/23/2022 at 14:21 Approved by: Didier Castillo M.D. on 08/23/2022 at 14:21
[2022-08-23] MEDS: SODIUM CHLORIDE 0.9% 1,000 ML 1000 ML IV ×2 (14:05→16:09)
[2022-08-23] MEDS: ONDANSETRON 4 MG/2 ML INJ IV ×2 (14:06→15:12)
[2022-08-23] MEDS: HYDROMORPHONE 0.5 MG INJ IV (14:06)
--- NOTE | 2022-08-23 14:56 | DI.CT.S_ITS ---
PROCEDURE: CT ABDOMEN PELVIS W CON INDICATIONS: severe abdominal pain TECHNIQUE: After the administration of oral and IV contrast, axial sections were acquired from the lung bases to the pubic symphysis. Coronal and sagittal reformats were performed. For radiation dose reduction, the following was used: automated exposure control, adjustment of mA and/or kV according to patient size. COMPARISON: [facility], US, US ABDOMEN LIMITED, 08/23/2022, 14:39. [facility], MR, MR ABDOMEN MRCP, 09/24/2021, 9:01. [facility], CT, CT ABDOMEN PELVIS W CON, 06/21/2021, 11:39. FINDINGS: Image quality: Excellent. Lung bases: Unremarkable. A small hiatal hernia is incidentally noted. Heart: No significant findings. ABDOMEN: Liver: Mild periportal edema is seen. The liver is normal in size and demonstrates no suspicious lesions. Gallbladder: Unremarkable. Biliary ducts: Unremarkable. Pancreas: Unremarkable. Spleen: Unremarkable. Adrenal Glands: Unremarkable. Kidneys and Ureters: Unremarkable. Stomach and Bowel: Mild wall thickening can be seen of the colon, which is clearly improved compared to the prior CT dated 06/21/2021. No dilated loops of small bowel are seen. The stomach is relatively decompressed. A normal appendix is incidentally noted. Peritoneum: A small amount of ascites is seen. No abnormal intraperitoneal fluid. No free air. Ventral Wall: No hernia. Abdominal Nodes: No retroperitoneal or mesenteric adenopathy by size criteria. Vessels: Aorta and inferior vena cava are normal in size. Incidental note is made of a circumaortic left renal vein. PELVIS: Pelvic Organs: The uterus is unremarkable. There is a presumed resolving right-sided hemorrhagic cyst, as on series 4, image 36 measuring 18 mm. Bladder: Unremarkable. Pelvic Nodes: No enlarged lymph nodes. Miscellaneous: No inguinal hernias are seen. Bones: Unremarkable. IMPRESSION: Mild wall thickening can be seen of the colon, which is clearly improved compared to the prior CT. No dilated loops of small bowel are seen. Mild periportal edema is seen, which is nonspecific. There is an apparent resolving right ovarian hemorrhagic cyst. If it would be clinically appropriate, a followup pelvic ultrasound could be considered in 6 weeks to assure resolution/ improvement. Additional findings: Small hiatal hernia Circumaortic left renal vein Normal appendix Dictated by: Didier Castillo M.D. on 08/23/2022 at 14:50 Approved by: Didier Castillo M.D. on 08/23/2022 at 14:54
[2022-08-23] MEDS: PANTOPRAZOLE 40 MG VIAL IV (15:02)
[2022-08-23] MEDS: KETOROLAC 30 MG/ML VIAL 15 MG IV (16:38)
[2022-08-23] MEDS: ONDANSETRON 4 MG ODT PREPACK 1 BOTTLE MISC (17:57)
== END 2022-08-23 18:02 | disposition home or self-care (01) ==
PROVIDERS: Emergency Provider Emergency Medicine; PCP Family Medicine
DX: N83.201 Unspecified ovarian cyst, right side (principal); K52.9 Noninfective gastroenteritis and colitis, unspecified; R10.13 Epigastric pain; R11.2 Nausea with vomiting, unspecified; Z20.822 Contact with and (suspected) exposure to COVID-19
CPT/HCPCS: 0241U; 36415; 74177; 76705; 80053; 81003; 81025; 83605; 83690; 83735; 85025; 96361; 96374; 96375; 96376; 99284; C9113; J1170; J1885; J2405; Q9967